=== PATIENT | female | born 1970 | race Hispanic/Latino ===

== ENCOUNTER 2019-08-24 11:21 | Emergency (ER) | payer SELFPAY ==
[2019-08-24] MEDS ORDERED: ACETAMINOPHEN 325 MG TAB PO ONE (11:37)
[2019-08-24] MEDS ORDERED: NEOMY 3.5 MG/BACIT 400 UNITS/POLY B 5000 UNITS/GM OINT PACKET TP ONE (11:37)
[2019-08-24] MEDS ORDERED: TETANUS,DIPH,PERTUSS(ACELL) VACCINE 0.5 ML SYRINGE IM ONE (11:37)
[2019-08-24] MEDS ORDERED: SODIUM CHLORIDE 0.9% IRR 500 ML BOTTLE IR ONE (11:37)
[2019-08-24] MEDS ORDERED: LIDOCAINE (1%) 10 MG/1 ML VIAL 20 ML MDV INFILTRATI ONE (11:37)
[2019-08-24] MEDS ORDERED: SODIUM CHLORIDE 0.9% 1000 ML 1,000 ML IV ONE (11:38)
[2019-08-24] MEDS ORDERED: LORazepam 2 MG/ML VIAL IV PRN ×2 (11:39)
--- NOTE | 2019-08-24 11:40 | Emergency Department Report ---
ED General Adult HPI - General Chief complaint: Seizure Stated complaint: HEAD LACERATION Time Seen by Provider: 08/24/19 11:37 Source: patient, family Mode of arrival: Stretcher Limitations: No Limitations - History of Present Illness Initial comments: Patient is a 49-year-old female who comes to the emergency room after falling while at work striking her head on the ground. She has a large laceration to the back of her head. Patient states that she was at work doing her usual routine. She felt nauseated and went to the bathroom and vomited times once. She then came back to her workstation and continue to work she felt flushed and hot and fell to the floor. 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 There were other workers around her at the time that witnessed the fall. They state that the patient had just fallen out. They deny any tonic-clonic activity. Patient has a history of alcoholism. Her last drink was on Thursday. She has been in rehab numerous times in the past. Patient states that she is pretty much drank every day for the last 25 years. The last time she was in rehab was about a year ago and during that inpatient rehab treatment she had a seizure. Patient is on no home medications for seizures. She had never had a seizure prior to that. Again the seizure was in the context of alcohol withdrawal. Patient smokes socially. She denies any drugs. Past medical history significant for skin cancer with skin cancer removal from her nose. She is on no home medications. She is allergic to no medications. She lives with her . She has no children. She does work full-time. On exam patient is awake alert and oriented x4. Cranial nerves intact. There is no focal neuro deficit. Pupils are 3 and reactive bilaterally. There is a large laceration and hematoma to the back of the head. There is no C-spine tenderness. And no other injury or complaints of pain. Patient is has no nausea vomiting or photophobia. -: Sudden Location: head Associated Symptoms: denies other symptoms Treatments Prior to Arrival: none - Related Data Allergies Allergy/AdvReac Type Severity Reaction Status Date / Time No Known Allergies Allergy Unverified 08/24/19 11:27 ED Review of Systems ROS: Stated complaint: HEAD LACERATION Other details as noted in HPI Comment: All other systems reviewed and negative ED Past Medical Hx - Past Medical History Previous Medical History?: Yes Hx Seizures: Yes (2019 while in alcohol treatment) Additional medical history: SKIN CA ON NOSE - Surgical History Past Surgical History?: Yes Additional Surgical History: SKIN CA REMOVAL FROM NOSE - Family History Family history: no significant - Social History Smoking Status: Never Smoker Substance Use Type: Alcohol ED Physical Exam - General Limitations: No Limitations General appearance: alert, in no apparent distress - Head Head exam: Present: normocephalic - Eye Eye exam: Present: normal appearance - ENT ENT exam: Present: mucous membranes moist - Neck Neck exam: Present: normal inspection - Respiratory Respiratory exam: Present: normal lung sounds bilaterally. Absent: respiratory distress - Cardiovascular Cardiovascular Exam: Present: regular rate, normal rhythm. Absent: systolic murmur, diastolic murmur, rubs, gallop - GI/Abdominal GI/Abdominal exam: Present: soft, normal bowel sounds - Extremities Exam Extremities exam: Present: normal inspection - Back Exam Back exam: Present: normal inspection - Neurological Exam Neurological exam: Present: alert, oriented X3, CN II-XII intact, normal gait - Psychiatric Psychiatric exam: Present: normal affect, normal mood - Skin Skin exam: Present: warm, dry, normal color, pallor, other. Absent: rash ED Course Vital Signs 08/24/19 08/24/19 08/24/19 11:28 11:45 12:20 Temperature 98.5 F Pulse Rate 82 Respiratory 16 16 16 Rate Blood Pressure 132/90 O2 Sat by Pulse 97 Oximetry - Laceration /Wound Repair HEAD Wound Location: head Wound Length (cm): 5 Wound's Depth, Shape: superficial Wound Explored: clean Irrigated w/ Saline (ccs): 100 Betadine Prep?: Yes Anesthesia: 1% Lidocaine Volume Anesthetic (ccs): 4 Wound Debrided: minimal Layer Closure?: No Sterile Dressing Applied?: Yes Progress: 10 EFREN USED TO OBTAIN CLOSURE TOLERATED WELL ED Medical Decision Making - Lab Data Result diagrams: 08/24/19 11:49 08/24/19 11:49 - Radiology Data Radiology results: report reviewed, image reviewed - Medical Decision Making Lab Results 08/24/19 08/24/19 08/24/19 Range/Units 11:49 11:49 11:49 WBC 3.1 L (4.5-11.0) K/mm3 RBC 3.14 L (3.65-5.03) M/mm3 Hgb 10.8 (10.1-14.3) gm/dl Hct 32.8 (30.3-42.9) % MCV 105 H (79-97) fl MCH 34 H (28-32) pg MCHC 33 (30-34) % RDW 21.9 H (13.2-15.2) % Plt Count 83 L (140-440) K/mm3 PT (12.2-14.9) Sec. INR (0.87-1.13) Sodium 135 L (137-145) mmol/L Potassium 3.3 L (3.6-5.0) mmol/L Chloride 92.5 L (98-107) mmol/L Carbon Dioxide 20 L (22-30) mmol/L Anion Gap 26 mmol/L BUN 8 (7-17) mg/dL Creatinine 1.2 (0.7-1.2) mg/dL Estimated GFR 48 ml/min BUN/Creatinine Ratio 7 % Glucose 194 H (65-100) mg/dL Calcium 9.6 (8.4-10.2) mg/dL Magnesium (1.7-2.3) mg/dL Total Bilirubin 0.80 (0.1-1.2) mg/dL Direct Bilirubin (0-0.2) mg/dL Indirect Bilirubin mg/dL AST 212 H (5-40) units/L ALT 67 H (7-56) units/L Alkaline Phosphatase 79 (35-129) units/L Ammonia 45.0 (25-60) umol/L Total Creatine Kinase 129 (30-135) units/L Total Protein 8.0 (6.3-8.2) g/dL Albumin 4.5 (3.9-5) g/dL Albumin/Globulin Ratio 1.3 % HCG, Qual (Negative) Urine Color (Yellow) Urine Turbidity (Clear) Urine pH (5.0-7.0) Ur Specific Schuyler (1.003-1.030) Urine Protein (Negative) mg/dL Urine Glucose (UA) (Negative) mg/dL Urine Ketones (Negative) mg/dL Urine Blood (Negative) Urine Nitrite (Negative) Urine Bilirubin (Negative) Urine Urobilinogen (<2.0) mg/dL Ur Leukocyte Esterase (Negative) Urine WBC (Auto) (0.0-6.0) /HPF Urine RBC (Auto) (0.0-6.0) /HPF U Epithel Cells (Auto) (0-13.0) /HPF Urine Bacteria (Auto) (Negative) /HPF Urine Mucus /HPF 08/24/19 08/24/19 08/24/19 Range/Units 11:49 11:49 11:49 WBC (4.5-11.0) K/mm3 RBC (3.65-5.03) M/mm3 Hgb (10.1-14.3) gm/dl Hct (30.3-42.9) % MCV (79-97) fl MCH (28-32) pg MCHC (30-34) % RDW (13.2-15.2) % Plt Count (140-440) K/mm3 PT 13.5 (12.2-14.9) Sec. INR 1.02 (0.87-1.13) Sodium (137-145) mmol/L Potassium (3.6-5.0) mmol/L Chloride (98-107) mmol/L Carbon Dioxide (22-30) mmol/L Anion Gap mmol/L BUN (7-17) mg/dL Creatinine (0.7-1.2) mg/dL Estimated GFR ml/min BUN/Creatinine Ratio % Glucose (65-100) mg/dL Calcium (8.4-10.2) mg/dL Magnesium 1.00 L (1.7-2.3) mg/dL Total Bilirubin 0.70 (0.1-1.2) mg/dL Direct Bilirubin 0.3 H (0-0.2) mg/dL Indirect Bilirubin 0.4 mg/dL AST 212 H (5-40) units/L ALT 69 H (7-56) units/L Alkaline Phosphatase 74 (35-129) units/L Ammonia (25-60) umol/L Total Creatine Kinase (30-135) units/L Total Protein 8.1 (6.3-8.2) g/dL Albumin 4.5 (3.9-5) g/dL Albumin/Globulin Ratio 1.3 % HCG, Qual Negative (Negative) Urine Color (Yellow) Urine Turbidity (Clear) Urine pH (5.0-7.0) Ur Specific Schuyler (1.003-1.030) Urine Protein (Negative) mg/dL Urine Glucose (UA) (Negative) mg/dL Urine Ketones (Negative) mg/dL Urine Blood (Negative) Urine Nitrite (Negative) Urine Bilirubin (Negative) Urine Urobilinogen (<2.0) mg/dL Ur Leukocyte Esterase (Negative) Urine WBC (Auto) (0.0-6.0) /HPF Urine RBC (Auto) (0.0-6.0) /HPF U Epithel Cells (Auto) (0-13.0) /HPF Urine Bacteria (Auto) (Negative) /HPF Urine Mucus /HPF 08/24/19 Range/Units 13:36 WBC (4.5-11.0) K/mm3 RBC (3.65-5.03) M/mm3 Hgb (10.1-14.3) gm/dl Hct (30.3-42.9) % MCV (79-97) fl MCH (28-32) pg MCHC (30-34) % RDW (13.2-15.2) % Plt Count (140-440) K/mm3 PT (12.2-14.9) Sec. INR (0.87-1.13) Sodium (137-145) mmol/L Potassium (3.6-5.0) mmol/L Chloride (98-107) mmol/L Carbon Dioxide (22-30) mmol/L Anion Gap mmol/L BUN (7-17) mg/dL Creatinine (0.7-1.2) mg/dL Estimated GFR ml/min BUN/Creatinine Ratio % Glucose (65-100) mg/dL Calcium (8.4-10.2) mg/dL Magnesium (1.7-2.3) mg/dL Total Bilirubin (0.1-1.2) mg/dL Direct Bilirubin (0-0.2) mg/dL Indirect Bilirubin mg/dL AST (5-40) units/L ALT (7-56) units/L Alkaline Phosphatase (35-129) units/L Ammonia (25-60) umol/L Total Creatine Kinase (30-135) units/L Total Protein (6.3-8.2) g/dL Albumin (3.9-5) g/dL Albumin/Globulin Ratio % HCG, Qual (Negative) Urine Color Yellow (Yellow) Urine Turbidity Cloudy (Clear) Urine pH 6.0 (5.0-7.0) Ur Specific Schuyler 1.003 (1.003-1.030) Urine Protein <15 mg/dl (Negative) mg/dL Urine Glucose (UA) 50 (Negative) mg/dL Urine Ketones Tr (Negative) mg/dL Urine Blood Mod (Negative) Urine Nitrite Neg (Negative) Urine Bilirubin Neg (Negative) Urine Urobilinogen < 2.0 (<2.0) mg/dL Ur Leukocyte Esterase Mod (Negative) Urine WBC (Auto) 17.0 H (0.0-6.0) /HPF Urine RBC (Auto) 8.0 (0.0-6.0) /HPF U Epithel Cells (Auto) 19.0 H (0-13.0) /HPF Urine Bacteria (Auto) 2+ (Negative) /HPF Urine Mucus Few /HPF Vital Signs 08/24/19 08/24/19 08/24/19 11:28 11:45 12:20 Temperature 98.5 F Pulse Rate 82 Respiratory 16 16 16 Rate Blood Pressure 132/90 O2 Sat by Pulse 97 Oximetry labs noted K and Mg replaced CIWA initiated Banana bag initiated- will run over 4 hours Rocephin IV given- ua with 17 WBC and leuks- triggered culture Plt 83 Wound repaired with efren tdap given CT cspine neg CT head noted with subdural hematoma Tamir consulted Pt will go to [place] for continued trauma care. Keppra IV given per [facility] recommendation. Family and pt updated on plan of care 1545 re-exam - remains neuro intact with no deficit Pt being transferred to [place]- accepting MD Dr Ledezma. - Differential Diagnosis RO HEAD INJURY/LAC REPAIR Critical care attestation.: If time is entered above; I have spent that time in minutes in the direct care of this critically ill patient, excluding procedure time. ED Disposition Clinical Impression: Laceration of head, Subdural hematoma, Alcohol withdrawal, Fall from ground level, Syncope, Thrombocytopenia, Hypomagnesemia, Hypokalemia Disposition: DC/TX-70 ANOTHER TYPE HLTHCARE Is pt being admited?: No Does the pt Need Aspirin: No Condition: Stable Referrals: PRIMARY CARE, [Primary Care Provider] - 3-5 Days Time of Disposition: 14:51
[2019-08-24 12:17] LABS: Hematocrit 32.8 % (30.3-42.9); Hemoglobin 10.8 gm/dl (10.1-14.3); Mean Corpuscular HGB Conc 33 % (30-34); Mean Corpuscular Volume 105 fl (79-97); Red Blood Count 3.14 M/mm3 (3.65-5.03)
[2019-08-24 12:18] LABS: Platelet Count 83 K/mm3 (140-440); Red Cell Distribution Width 21.9 % (13.2-15.2)
[2019-08-24 12:27] LABS: INR 1.02 (0.87-1.13)
[2019-08-24 12:39] LABS: Albumin 4.5 g/dL (3.9-5); Calcium 9.6 mg/dL (8.4-10.2)
[2019-08-24 12:40] LABS: Albumin 4.5 g/dL (3.9-5); Bilirubin,Direct 0.3 mg/dL (0-0.2)
[2019-08-24] MEDS ORDERED: THIAMINE 100 MG, FOLIC ACID 1 MG, MULTIPLE VITAMIN INJ, ADULT 10 ML in SODIUM CHLORIDE ... IV ONE (12:44)
[2019-08-24] MEDS ORDERED: MAGNESIUM SULFATE 2 GM/50 ML BAG IV ONE (12:44)
[2019-08-24 14:02] LABS: Bacteria,Urine 2+ /HPF (Negative); Bilirubin,Urine NEG (Negative); Blood,Urine MOD (Negative); Color,Urine Yellow (Yellow); Mucus,Urine FEW /HPF; Protein,Urine <15 mg/dL mg/dL (Negative); Urobilinogen,Urine < 2.0 mg/dL (<2.0)
[2019-08-24] MEDS ORDERED: cefTRIAXone/NS 1 GM/50 ML 1 GM/50 ML BAG IV ONE (14:22)
[2019-08-24] MEDS ORDERED: POTASSIUM CHLORIDE ER 20 MEQ TAB PO ONE (14:22)
--- NOTE | 2019-08-24 15:09 | Cat Scan Report ---
CT head/brain wo con INDICATION / CLINICAL INFORMATION: 49 years Female; sz/fall/lac to back of head. TECHNIQUE: Routine CT head without contrast. All CT scans at this location are performed using CT dos e reduction for ALARA by means of automated exposure control. COMPARISON: None. FINDINGS: BRAIN / INTRACRANIAL CONTENTS: Very small, acute parafalcine subdural hematoma seen on the left measu ring 1 - 2 mm in maximum thickness. There is no associated mass effect. Otherwise, no acute hemorrhage, mass effect, midline shift, hydrocephalus, or acute, large territoria l infarct. Minimal cerebral and cerebellar atrophy. No significant white matter disease appreciated. CRANIOCERVICAL JUNCTION: No significant abnormality. ORBITS: No significant abnormality of visualized orbits. SINUSES / MASTOIDS: No significant abnormality the visualized paranasal sinuses or mastoid air cells. ADDITIONAL FINDINGS: Prominent subcutaneous hemorrhage seen in the posterior parietal region. No sign s of underlying calvarial fracture appreciated. IMPRESSION: 1. Minimal, acute parafalcine subdural hematoma without mass effect. Short-term follow-up is recommen ded to ensure resolution of this finding. Signer Name: Jermaine Zambrano MD, III Signed: 08/24/2019 3:05 PM Workstation Name: [id number]
--- NOTE | 2019-08-24 15:17 | Cat Scan Report ---
CT cervical spine wo con INDICATION / CLINICAL INFORMATION: 49 years Female; fall pain neck. TECHNIQUE: Axial CT images of the cervical spine were obtained. Sagittal and coronal reformatted images were pr oduced. All CT scans at this location are performed using CT dose reduction for ALARA by means of aut omated exposure control. COMPARISON: None available. FINDINGS: POST-SURGICAL CHANGES: None. ALIGNMENT: Minimal kyphosis of the cervical spine seen, which may be related to patient positioning o n the table. VERTEBRAE: No signs of fracture. Vertebral bodies are grossly normal in height throughout. No signif icant facet joint disease or osseous foraminal narrowing appreciated. INTRAVERTEBRAL DISCS: Disc space narrowing seen at C6-7. Mild disc disease seen at C5-6 and C6-7 with out dominant herniation. No definitive signs of significant canal stenosis appreciated. PARASPINAL SOFT TISSUES: No significant abnormality. ADDITIONAL FINDINGS: Minimal scarring type changes versus platelike atelectasis seen in the right upp er lobe. Azygous lobe fissure might also be a consideration. IMPRESSION: 1. No signs of acute bony trauma to the cervical spine. Signer Name: Jermaine Zambrano MD, III Signed: 08/24/2019 3:13 PM Workstation Name: [id number]
[2019-08-24] MEDS ORDERED: levETIRAcetam 1000 MG/NS 0.75% 1,000 MG/100 ML BAG IV ONE (15:34)
[2019-08-24 16:12] VITALS: BP 120/89
--- NOTE | 2019-08-24 16:30 | Event Note ---
Face to Face: For this encounter I have reviewed the PA/ORDER SELECTOR documentation, treatment plan, medical decision making, and I had face to face time with this patient. Patient is an alcoholic who suffered a fall prior to arrival. His CT note is as follows: CT head/brain wo con INDICATION / CLINICAL INFORMATION: 49 years Female; sz/fall/lac to back of head. TECHNIQUE: Routine CT head without contrast. All CT scans at this location are performed using CT dose reduction for ALARA by means of automated exposure control. COMPARISON: None. FINDINGS: BRAIN / INTRACRANIAL CONTENTS: Very small, acute parafalcine subdural hematoma seen on the left measuring 1 - 2 mm in maximum thickness. There is no associated mass effect. Otherwise, no acute hemorrhage, mass effect, midline shift, hydrocephalus, or acute, large territorial infarct. Minimal cerebral and cerebellar atrophy. No significant white matter disease appreciated. CRANIOCERVICAL JUNCTION: No significant abnormality. ORBITS: No significant abnormality of visualized orbits. SINUSES / MASTOIDS: No significant abnormality the visualized paranasal sinuses or mastoid air cells. ADDITIONAL FINDINGS: Prominent subcutaneous hemorrhage seen in the posterior parietal region. No signs of underlying calvarial fracture appreciated. IMPRESSION: 1. Minimal, acute parafalcine subdural hematoma without mass effect. Short-term follow-up is recommended to ensure resolution of this finding. Signer Name: Jermaine Zambrano MD, III Signed: 08/24/2019 3:05 PM Workstation Name: [id number] Patient to be transferred to [place] [facility] for further management and neurosurgery consult
== END 2019-08-24 16:56 | disposition other institution (70) ==
LOC: ED 11:21
DX: S01.91XA Laceration without foreign body of unspecified part of head, initial encounter (principal); F10.239 Alcohol dependence with withdrawal, unspecified; R55 Syncope and collapse; D69.6 Thrombocytopenia, unspecified; E83.42 Hypomagnesemia; E87.6 Hypokalemia; W01.198A Fall on same level from slipping, tripping and stumbling with subsequent striking against other object, initial encounter; Y93.89 Activity, other specified; Y92.89 Other specified places as the place of occurrence of the external cause; Y99.8 Other external cause status
CPT/HCPCS: 12013; 36415; 70450; 72125; 80053; 80076; 81001; 82140; 82550; 83735; 84703; 85027; 85610; 87086; 90471; 90715; 96361; 96365; 96366; 96367; 96368; 99285; J0696; J1953; J3411; J3475; J7030; A6250